=== PATIENT | male | born 1990 | race African-American/Black ===

== ENCOUNTER 2021-06-12 13:56 | Emergency (ER) | payer MEDICAID ==
--- NOTE | 2021-06-12 15:26 | CR ---
Left shoulder: 3 views of the left shoulder were obtained. Comparison: No prior shoulder study is available. Acromioclavicular and glenohumeral joints appear within normal limits. No fracture, dislocation or other bony abnormality is appreciated. No abnormal soft tissue calcifications are seen. Impression: 1. Nothing acute is seen on 3-view left shoulder study. Diagnostic code #1
--- NOTE | 2021-06-12 15:52 | EDM.PDOC ---
ED HPI GENERAL MEDICAL PROBLEM - General Chief Complaint: Upper Extremity Injury/Pain Stated Complaint: SHOULDER PAIN Time Seen by Provider: 06/12/21 14:19 Source of Information: Reports: Patient, RN Notes Reviewed History Limitations: Reports: No Limitations - History of Present Illness INITIAL COMMENTS - FREE TEXT/NARRATIVE: Patient is a 31-year-old male presenting to the emergency department complaints of left shoulder pain. Recommend that he awoke with the pain 2 days ago and has been progressively worsening since that time. He is able to lift his arm over his head and has full range of motion but states it is painful. He has not injured it in any way. 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 Denies any history of shoulder pain. He is not taking anything for pain. 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: Reports: Other (see below) Other 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: none Left Shoulder Pain Score (Numeric/FACES): 10 - Related Data Allergies Allergy/AdvReac Type Severity Reaction Status Date / Time No Known Allergies Allergy Verified 06/12/21 14:21 Home Meds: Home Meds predniSONE [Prednisone] 20 mg PO ASDIRECTED #15 tablet 06/12/21 [Rx] Past Medical History - Past Health History Medical/Surgical History: Denies Medical/Surgical History - Infectious Disease History Infectious Disease History: Reports: None Social & Family History - Tobacco Use Tobacco Use Status *Q: Never Tobacco User - Caffeine Use Caffeine Use: Reports: Tea - Recreational Drug Use Recreational Drug Use: No Review of Systems - Review of Systems Review Of Systems: Comprehensive ROS is negative, except as noted in HPI. ED EXAM, GENERAL - Physical Exam Exam: See Below General Appearance: Alert, WD/WN, No Apparent Distress Respiratory/Chest: No Respiratory Distress, Lungs Clear, Normal Breath Sounds, No Accessory Muscle Use, Chest Non-Tender Cardiovascular: Normal Peripheral Pulses, Regular Rate, Rhythm, No Edema, No Gallop, No JVD, No Murmur, No Rub Extremities: Other (Tenderness to palpation of the posterior glenoid fossa. No redness, warmth, or swelling. Full active range of motion however painful.) Neurological: Alert, Oriented, CN II-XII Intact, Normal Cognition, Normal Gait, Normal Reflexes, No Motor/Sensory Deficits Psychiatric: Normal Affect, Normal Mood Skin Exam: Warm, Dry, Intact, Normal Color, No Rash Course - Vital Signs Last Recorded V/S: Last Vital Signs Temp 97.7 F 06/12/21 14:24 Pulse 58 L 06/12/21 14:24 Resp BP 126/73 06/12/21 14:24 Pulse Ox 96 06/12/21 14:24 - Re-Assessments/Exams Free Text/Narrative Re-Assessment/Exam: Patient is a 31-year-old male presenting to the emergency department complaints of a 2-day history of left shoulder pain. Has had no known injury and states that he woke with the pain in the morning 2 days ago. This morning upon waking the pain was significantly worse. Tenderness to palpation in the posterior glenoid fossa. Remainder of exam is unremarkable. He has full range of motion but states it is painful. I have ordered x-ray left shoulder. 06/12/21 15:49 X-ray of the shoulder is unremarkable. Patient was started on prednisone for treatment of likely tendinitis. Recommend follow-up with primary care if symptoms do not improve over the next few days. Discharge instructions as document. Departure - Departure Time of Disposition: 15:49 Disposition: Home, Self-Care 01 Condition: Good Clinical Impression: Left shoulder tendonitis - Discharge Information *PRESCRIPTION DRUG MONITORING PROGRAM REVIEWED*: No *COPY OF PRESCRIPTION DRUG MONITORING REPORT IN PATIENT CODIE: No Prescriptions: predniSONE [Prednisone] 20 mg PO ASDIRECTED #15 tablet Instructions: Tendinitis Referrals: Britney Duran NP [Primary Care Provider] - Additional Instructions: Take prednisone as prescribed. Use Tylenol or ibuprofen as needed for pain. Pain does not improve over the next few days, recommend follow-up in the clinic with primary care. Return to ER as needed. Sepsis Event Note (ED) - Focused Exam Vital Signs: Vital Signs Temp Pulse BP Pulse Ox 06/12/21 14:24 97.7 F 58 L 126/73 96
== END 2021-06-12 16:02 | disposition home or self-care (01) ==
LOC: JD.ED 13:56 → SUPCPDRO 13:56 → JD.ED 16:02
DX: M77.8 Other enthesopathies, not elsewhere classified (principal)
CPT/HCPCS: 73030-26-LT; 73030-LT; 99283-25

== ENCOUNTER 2023-07-23 14:45 | Emergency (ER) | payer MEDICAID | END 2023-07-23 18:30 | disposition left against medical advice (07) | LOC: JD.ED 14:45 | DX: Z53.21 Procedure and treatment not carried out due to patient leaving prior to being seen by health care provider (principal) ==